=== PATIENT | male | born 1945 | race Caucasian/White ===

== ENCOUNTER 2021-09-18 11:53 | Emergency (ER) | payer OTHER, MEDICARE ==
[2021-09-18 11:59] VITALS: TEMP 96; BMI 28.5
[2021-09-18] MEDS ORDERED: CASIRIVIMAB/IMDEVIMAB 10 ML in SODIUM CHLORIDE 100 ML IVPB ONE (12:46)
[2021-09-18 13:22] LABS: BASO % 0.3 % (0-2.0); EOS % 0.1 % (0-4.5); HEMATOCRIT 46.2 % (35.4-49); HEMOGLOBIN 15.5 GM/dL (11.7-16.9); LYMPH % 14.1 % (8-40); MCH 32.2 pg (25.7-33.7); MCHC 33.6 g/dl (32.0-35.9); MEAN PLT VOLUME 8.3 fl (7.5-11.1); MONO % 18.3 % (3.8-10.2); NEUT % 67.2 % (42.8-82.8); PLATELET COUNT 153 10^3/uL (134-434); RBC 4.82 M/mm3 (4.00-5.60); RDW 13.5 % (11.9-15.9); WHITE BLOOD COUNT 5.8 K/mm3 (4.0-10.0)
[2021-09-18 13:50] LABS: INR 1.2 (0.83-1.09); PROTHROMBIN TIME (PATIENT) 13.5 SEC (9.7-13.0)
[2021-09-18 14:08] LABS: ALBUMIN 3.3 g/dl (3.4-5.0); ALK PHOS 36 U/L (45-117); ANION GAP 4 MMOL/L (8-16); BLOOD UREA NITROGEN 26.9 mg/dL (7-18); CALCIUM 8.7 mg/dL (8.5-10.1); CHLORIDE 102 mmol/L (98-107); CO2 21 mmol/L (21-32); CREATININE 1.4 mg/dL (0.55-1.3); GLUCOSE,RANDOM 91 mg/dL (74-106); SGOT/AST 133 U/L (15-37); SODIUM 128 mmol/L (136-145); TOT PROT 8.3 g/dl (6.4-8.2)
[2021-09-18 15:05] VITALS: BP 135/70; PULSE 62
[2021-09-18 15:38] LABS: CALCIUM 8.9 mg/dL (8.5-10.1)
[2021-09-18 15:39] LABS: ALBUMIN 3.4 g/dl (3.4-5.0); BLOOD UREA NITROGEN 26.2 mg/dL (7-18)
[2021-09-18 15:42] LABS: CREATININE 1.2 mg/dL (0.55-1.3)
[2021-09-18 15:44] LABS: BILIRUBIN,TOTAL 0.4 mg/dL (0.2-1); TOT PROT 6.8 g/dl (6.4-8.2)
== END 2021-09-18 17:55 ==
LOC: JCOVINFU 11:53 → JER 11:53
PROC: 3E033GC Introduction of Other Therapeutic Substance into Peripheral Vein, Percutaneous Approach (ICD-10-PCS; principal; 2021-09-18)
DX: U07.1 COVID-19 (principal)
CPT/HCPCS: 36415; 70450-TC; 80048; 80053; 82550; 84484; 85025; 85610; 99285-25; Q0240